=== PATIENT | female | born 1990 | race Caucasian/White ===

== ENCOUNTER 2016-09-16 15:22 | Emergency (ER) | payer MEDICAID ==
[~2016-09-16] VITALS: Ht 165.1 cm; Wt 69.4 kg
[2016-09-16] MEDS ORDERED: MAG HYDROX/AL HYDROX/SIMETH 30 ML LIQUID UDC PO ONE (15:45)
[2016-09-16] MEDS ORDERED: DICYCLOMINE HCL 10 MG/5 ML UDC LIQ PO ONE (15:45)
[2016-09-16] MEDS ORDERED: MAG HYDROX/AL HYDROX/SIMETH 30 ML LIQUID UDC ONE (16:02)
[2016-09-16] MEDS ORDERED: DICYCLOMINE HCL 10 MG/5 ML UDC LIQ ONE (16:02)
[2016-09-16] MEDS ORDERED: PANTOPRAZOLE ORAL SUSPENSION 40 MG SUSPDR.PKT PO STA (16:22)
[2016-09-16] MEDS ORDERED: PANTOPRAZOLE SODIUM 40 MG TABLET.DR PO ONE ×4 (16:30→17:54)
--- NOTE | 2016-09-16 17:46 | NUR ---
Patient discharged to home in stable conditon. Written and verbal after care instructions given. Patient verbalizes understanding of instructions.PT WALKS IN STEADY GAIT, ACCOMPANIED BY SO,
[2016-09-16 17:47] VITALS: BP 111/66
== END 2016-09-16 17:48 | disposition home or self-care (01) ==
LOC: ER 15:23
DX: K21.0 Gastro-esophageal reflux disease with esophagitis (principal)
CPT/HCPCS: 99284; A4663

== ENCOUNTER 2017-06-27 19:16 | Emergency (ER) | payer MEDICAID ==
--- NOTE | 2017-06-27 19:50 | NUR ---
CALLED FOR PT NO ANSWER.[email or web address]
== END 2017-06-27 19:55 | disposition left against medical advice (07) ==
LOC: ER 19:19
DX: Z53.21 Procedure and treatment not carried out due to patient leaving prior to being seen by health care provider (principal)